=== PATIENT | male | born 1995 | race Caucasian/White ===

== ENCOUNTER 2017-02-10 02:50 | Emergency (ER) | payer SELFPAY ==
[2017-02-10 02:50] VITALS: BMI 23.3
[2017-02-10 03:08] VITALS: TEMP 97.8
[2017-02-10] MEDS ORDERED: Lidocaine 5% Patch TD STA (03:17)
[2017-02-10] MEDS ORDERED: Lidocaine 5% Patch TD ONE (03:24)
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
[2017-02-10 05:14] VITALS: BP 116/65; PULSE 78; RESP 16
[2017-02-10 06:31] VITALS: O2SAT 98
--- NOTE | 2017-02-10 11:35 | RAD ---
PROCEDURE: Radiographs of the Lumbar Spine. HISTORY: back pain s.p fall stairs COMPARISON: No prior. FINDINGS: BONES: No acute compression fractures nor retropulsed fragments. Minor chronic appearing anterior stature loss of the L1 and T12 and to a lesser degree T11 segments. DISC SPACES: Unremarkable. OTHER FINDINGS: None. IMPRESSION: No acute fractures. Minor chronic anterior stature loss L1, T12 and to a lesser degree T11 segments. If symptoms persist or occult fracture suspected clinically consider followup CT scan
== END 2017-02-10 05:22 | disposition home or self-care (01) ==
LOC: MERGE 02:50 → C.ER 02:50
DX: S30.0XXA Contusion of lower back and pelvis, initial encounter (principal); W10.9XXA Fall (on) (from) unspecified stairs and steps, initial encounter; Y92.9 Unspecified place or not applicable